=== PATIENT | female | born 1970 | race Caucasian/White ===

== ENCOUNTER 2017-01-13 19:50 | Emergency (ER) | payer OTHER ==
[2017-01-13 21:04] VITALS: BP 154/105
== END 2017-01-13 22:30 | disposition home or self-care (01) ==
LOC: ED 19:50
DX: M25.562 Pain in left knee (principal); I10 Essential (primary) hypertension; E78.00 Pure hypercholesterolemia, unspecified; E11.9 Type 2 diabetes mellitus without complications

== ENCOUNTER 2017-02-05 14:28 | Emergency (ER) | payer OTHER ==
[2017-02-05 17:30] VITALS: BP 157/99
== END 2017-02-05 17:30 | disposition home or self-care (01) ==
LOC: ED 14:28
DX: L84 Corns and callosities (principal); E11.9 Type 2 diabetes mellitus without complications; I10 Essential (primary) hypertension; E78.00 Pure hypercholesterolemia, unspecified